=== PATIENT | male | born 1980 | race Caucasian/White ===

== ENCOUNTER 2016-08-23 09:32 | Inpatient (IN) | payer MEDICAID ==
[~2016-08-23] VITALS: Ht 177.8 cm; Wt 94.8 kg
[2016-08-23 09:33] VITALS: BP_SYST 112
[2016-08-23] MEDS ORDERED: NACL 0.9% 1,000 ML IV ONE (09:45)
[2016-08-23] MEDS ORDERED: MORPHINE 4 MG/ML INJ. SYRINGE IM ONE (09:45)
[2016-08-23] MEDS ORDERED: ONDANSETRON HCL 4 MG/2 ML VIAL IVP ONE (09:45)
[2016-08-23 10:19] LABS: BASOPHILS # (AUTO) 0.2 K/uL (0.0-0.2); BASOPHILS % (AUTO) 1.1 % (0.0-2.0); EOSINOPHILS # (AUTO) 0.1 K/uL (0.0-0.4); EOSINOPHILS % (AUTO) 0.6 % (0.0-4.0); HEMATOCRIT 29.8 % (36-54); HEMOGLOBIN 9.5 g/dL (14.0-18.0); LYMPHOCYTES # (AUTO) 4.1 K/uL (1.0-5.5); LYMPHOCYTES % (AUTO) 25.7 % (20.5-51.5); MEAN CORPUSCULAR HEMOGLOBIN 25 pg (27-31); MEAN CORPUSCULAR HGB CONC 32 % (32-36); MEAN CORPUSCULAR VOLUME 79 fL (79.0-98.0); MONOCYTES # (AUTO) 0.7 K/uL (0.0-1.0); MONOCYTES % (AUTO) 4.7 % (1.7-9.3); NEUTROPHILS # (AUTO) 10.8 K/uL (1.8-7.7); NEUTROPHILS % (AUTO) 67.9 % (40.0-70.0); PLATELET COUNT (AUTO) 228 K/uL (130-430); RED BLOOD CELL COUNT(AUTO) 3.78 MIL/uL (4.2-6.2); RED CELL DISTRIBUTION WIDTH 15.3 % (9.0-15.0); WHITE BLOOD COUNT (AUTO) 15.9 K/uL (4.8-10.8)
[2016-08-23 10:29] LABS: CALCIUM 8.1 mg/dL (8.4-11.0); CREATININE 1.65 mg/dL (0.55-1.30); POTASSIUM 4.3 mmol/L (3.5-5.1)
[2016-08-23 10:36] LABS: ALBUMIN 2.7 g/dL (3.4-4.8); TOTAL BILIRUBIN 0.2 mg/dL (0.0-1.0); TOTAL PROTEIN, SERUM 5.3 g/dL (6.4-8.3)
[2016-08-23] MEDS ORDERED: IOHEXOL 0 ML IV ONE (10:36)
[2016-08-23] MEDS ORDERED: NACL 0.9% 1,000 ML IV SCH (12:20)
[2016-08-23 12:26] LABS: BILIRUBIN,URINE NEGATIVE (NEGATIVE); BLOOD, URINE NEGATIVE (NEGATIVE); CLARITY/URINE CLEAR (CLEAR); COLOR,URINE YELLOW (YELLOW); GLUCOSE,URINE NEGATIVE (NEGATIVE); KETONES,URINE NEGATIVE (NEGATIVE); LEUKOCYTE ESTERASE ,URINE NEGATIVE (NEGATIVE); NITRITE, URINE NEGATIVE (NEGATIVE); PROTEIN URINE TRACE (NEGATIVE); UROBILINOGEN,URINE 0.2 (0.2-1.0)
[2016-08-23] MEDS ORDERED: PIPERACILLIN/TAZO 3.38 GM in D5W 50 ML IV ONE (12:30)
[2016-08-23] MEDS ORDERED: VANCOMYCIN HCL 1,000 MG in D5W 250 ML IV ONE (12:30)
[2016-08-23] MEDS ORDERED: VANCOMYCIN HCL 1000 MG/VIAL IV ONE (12:37)
[2016-08-23 12:41] LABS: BARBITURATE, URINE NEGATIVE (NEG <=200); BENZODIAZEPINE, URINE NEGATIVE (NEG <=150); CANNABINOID, URINE NEGATIVE (NEG <=50); COCAINE, URINE NEGATIVE (NEG <=150); METHAMPHETAMINES SCREEN,URINE POSITIVE (NEG <=500); URINE AMPHETAMINE POSITIVE (NEG <=500); URINE METHADONE NEGATIVE (NEG <=200)
[2016-08-23 12:42] LABS: OPIATE, URINE NEGATIVE (NEG <=100); PHENCYCLIDINE SCREEN,URINE NEGATIVE (NEG <=25); UR TRICYCLIC ANTIDEPRESSANTS NEGATIVE (NEG <=300); URINE OXYCODONE SCREEN NEGATIVE (NEG <=100); URINE PROPOXYPHENE SCREEN NEGATIVE (NEG <=300)
[2016-08-23 13:02] VITALS: BP_SYST 112
[2016-08-23 13:30] VITALS: BP_SYST 112
[2016-08-23] MEDS ORDERED: PANTOPRAZOLE SODIUM 40 MG/VIAL (PROTONIX) IVP ONE (13:30)
[2016-08-23] MEDS: D5NS 1,000 ML IV SCH ×2 (14:03→22:42)
[2016-08-23 14:12] LABS: ACETAMINOPHEN 3 ug/mL (1-30); ALCOHOL, BLOOD < 3 mg/dL (<10); SALICYLATE 2 mg/dL (3-30)
[2016-08-23] MEDS ORDERED: PIPERACILLIN/TAZO 3.375 GM in D5W 50 ML IV ONE (14:45)
[2016-08-23] MEDS ORDERED: ACETAMINOPHEN 325 MG TABLET PO PRN (16:00)
[2016-08-23] MEDS ORDERED: MAGNESIUM SULFATE 50 ML IV PRN (16:00)
[2016-08-23] MEDS ORDERED: LORazepam 2 MG/ML VIAL IVP PRN (16:00)
[2016-08-23] MEDS ORDERED: POTASSIUM CHLORIDE 10 MEQ TAB.PRT.SR PO PRN (16:00)
[2016-08-23] MEDS ORDERED: ONDANSETRON HCL 4 MG/2 ML VIAL IVP PRN (16:00)
[2016-08-23] MEDS ORDERED: MORPHINE 2 MG/ML INJ. SYRINGE IVP PRN (16:00)
[2016-08-23] MEDS ORDERED: DOCUSATE SODIUM 100 MG CAPSULE PO PRN (16:00)
[2016-08-23 19:49] VITALS: BP_SYST 133
[2016-08-23] MEDS ORDERED: ZOLPIDEM TARTRATE 5 MG TABLET PO PRN (21:00)
[2016-08-23 23:47] VITALS: BP_SYST 137
[2016-08-24 04:32] VITALS: BP_SYST 127
[2016-08-24] MEDS: D5NS 1,000 ML IV SCH ×2 (05:12→17:47)
[2016-08-24 07:29] LABS: BASOPHILS % (AUTO) 0.2 % (0.0-2.0); EOSINOPHILS # (AUTO) 0.2 K/uL (0.0-0.4); EOSINOPHILS % (AUTO) 1.7 % (0.0-4.0); HEMATOCRIT 23.3 % (36-54); HEMOGLOBIN 7.6 g/dL (14.0-18.0); LYMPHOCYTES # (AUTO) 2.8 K/uL (1.0-5.5); LYMPHOCYTES % (AUTO) 24.4 % (20.5-51.5); MEAN CORPUSCULAR HEMOGLOBIN 26 pg (27-31); MEAN CORPUSCULAR HGB CONC 33 % (32-36); MEAN CORPUSCULAR VOLUME 78 fL (79.0-98.0); MONOCYTES # (AUTO) 0.7 K/uL (0.0-1.0); MONOCYTES % (AUTO) 6.5 % (1.7-9.3); NEUTROPHILS # (AUTO) 7.8 K/uL (1.8-7.7); NEUTROPHILS % (AUTO) 67.2 % (40.0-70.0); PLATELET COUNT (AUTO) 180 K/uL (130-430); RED BLOOD CELL COUNT(AUTO) 2.97 MIL/uL (4.2-6.2); RED CELL DISTRIBUTION WIDTH 15.6 % (9.0-15.0); WHITE BLOOD COUNT (AUTO) 11.5 K/uL (4.8-10.8)
[2016-08-24 08:07] LABS: IRON (SERUM) 33 mcg/dL (59-158); TOTAL IRON BIND. CAPACITY 290 ug/dL (250-450)
[2016-08-24 08:13] LABS: CALCIUM 7.6 mg/dL (8.4-11.0); CREATININE 0.98 mg/dL (0.55-1.30); POTASSIUM 3.7 mmol/L (3.5-5.1)
[2016-08-24 08:43] VITALS: BP_SYST 139
[2016-08-24] MEDS: PANTOPRAZOLE SODIUM 40 MG/VIAL (PROTONIX) IVP SCH (08:52)
[2016-08-24 12:00] VITALS: BP_SYST 143
[2016-08-24] MEDS: MIDAZOLAM HCL 5 MG/5 ML VIAL ONE ×2 (12:33→12:37)
[2016-08-24] MEDS: fentaNYL CITRATE/PF 100 MCG/2 ML AMP ONE ×2 (12:33→12:35)
[2016-08-24 15:28] VITALS: BP_SYST 149
[2016-08-24] MEDS ORDERED: LORazepam 2 MG/ML VIAL IM ONE (16:30)
[2016-08-24] MEDS ORDERED: BISACODYL 5 MG TABLET.DR (DULCOLAX) PO ONE (17:00)
[2016-08-24] MEDS ORDERED: GOLYTELY / COLYTE SOLUTION 4 LITERS PO ONE (18:00)
[2016-08-24 20:00] VITALS: BP_SYST 144
[2016-08-24] MEDS ORDERED: LISINOPRIL 10 MG TABLET (PRINIVIL) PO ONE (22:45)
[2016-08-24] MEDS ORDERED: ATORVASTATIN 20 MG TABLET PO ONE (23:00)
[2016-08-24] MEDS ORDERED: PIPERACILLIN/TAZOBACTAM 3.375 GM/VIAL (ZOSYN) IV ONE (23:01)
[2016-08-24] MEDS: PIPERACILLIN/TAZO 3.375/DEX-IS 50 ML IV SCH (23:30)
[2016-08-25] MEDS ORDERED: PIPERACILLIN/TAZOBACTAM 3.375 GM/VIAL (ZOSYN) IV ONE (00:13)
[2016-08-25 00:18] VITALS: BP_SYST 142
[2016-08-25 04:05] VITALS: BP_SYST 141
[2016-08-25] MEDS: PIPERACILLIN/TAZO 3.375/DEX-IS 50 ML IV SCH ×2 (05:38→11:50)
[2016-08-25 07:08] LABS: BASOPHILS % (AUTO) 0.3 % (0.0-2.0); EOSINOPHILS # (AUTO) 0.1 K/uL (0.0-0.4); EOSINOPHILS % (AUTO) 1.2 % (0.0-4.0); HEMATOCRIT 24.9 % (36-54); HEMOGLOBIN 7.5 g/dL (14.0-18.0); LYMPHOCYTES # (AUTO) 1.6 K/uL (1.0-5.5); LYMPHOCYTES % (AUTO) 15.3 % (20.5-51.5); MEAN CORPUSCULAR HEMOGLOBIN 24 pg (27-31); MEAN CORPUSCULAR HGB CONC 30 % (32-36); MEAN CORPUSCULAR VOLUME 79 fL (79.0-98.0); MONOCYTES # (AUTO) 0.6 K/uL (0.0-1.0); NEUTROPHILS # (AUTO) 8.3 K/uL (1.8-7.7); NEUTROPHILS % (AUTO) 77.2 % (40.0-70.0); PLATELET COUNT (AUTO) 211 K/uL (130-430); RED BLOOD CELL COUNT(AUTO) 3.15 MIL/uL (4.2-6.2); RED CELL DISTRIBUTION WIDTH 15.3 % (9.0-15.0); WHITE BLOOD COUNT (AUTO) 10.6 K/uL (4.8-10.8)
[2016-08-25] MEDS ORDERED: MIDAZOLAM HCL 5 MG/5 ML VIAL ONE ×2 (07:22→07:23)
[2016-08-25] MEDS ORDERED: SIMETHICONE 40 MG/0.6 ML ML ONE (07:23)
[2016-08-25] MEDS ORDERED: fentaNYL CITRATE/PF 100 MCG/2 ML AMP ONE (07:23)
[2016-08-25 07:25] VITALS: BP_SYST 134
[2016-08-25 07:26] LABS: PROTHROMBIN TIME 10.8 SECS (9.5-12.5)
[2016-08-25 07:43] LABS: CALCIUM 8.4 mg/dL (8.4-11.0); CREATININE 0.89 mg/dL (0.55-1.30); FREE T4 (FREE THYROXINE) 0.6 ng/dL (0.6-1.6); PHOSPHORUS 2.9 mg/dL (2.7-4.5); POTASSIUM 3.6 mmol/L (3.5-5.1); THYROID STIMULATING HORMONE 0.93 uIu/mL (0.34-4.82)
[2016-08-25] MEDS: MIDAZOLAM HCL 5 MG/5 ML VIAL ONE ×3 (08:24→08:28)
[2016-08-25] MEDS: fentaNYL CITRATE/PF 100 MCG/2 ML AMP ONE ×2 (08:24→08:28)
[2016-08-25] MEDS ORDERED: LISINOPRIL 10 MG TABLET (PRINIVIL) PO SCH (09:00)
[2016-08-25] MEDS ORDERED: ATORVASTATIN 20 MG TABLET PO SCH (09:00)
[2016-08-25] MEDS: PANTOPRAZOLE SODIUM 40 MG/VIAL (PROTONIX) IVP SCH (10:19)
[2016-08-25] MEDS ORDERED: D5NS 1,000 ML IV SCH (11:00)
[2016-08-25] MEDS ORDERED: NACL 0.9% 1,000 ML IV SCH (11:00)
[2016-08-25 11:40] VITALS: BP_SYST 143
[2016-08-25 16:25] VITALS: BP_SYST 142
[2016-08-25] MEDS ORDERED: GOLYTELY / COLYTE SOLUTION 4 LITERS PO ONE (18:00)
[2016-08-26 10:07] LABS: T4 (THYROXINE) 6.2 ug/dL (4.5-12.0)
[2016-08-27 05:18] LABS: FOLATE (FOLIC ACID) 12.7 ng/mL (>3.0)
[2016-08-27 11:01] LABS: HEMOGLOBIN A1C 5.9 % (4.8-5.6)
== END 2016-08-25 16:50 | disposition left against medical advice (07) | DRG 241 ==
LOC: SED 09:32 → SMU 12:04
PROVIDERS: ADMIT General Practice; ATTEND General Practice
PROC: 0DB68ZX Excision of Stomach, Via Natural or Artificial Opening Endoscopic, Diagnostic (ICD-10-PCS; principal; 2016-08-24 12:30)
DX: K29.81 Duodenitis with bleeding (principal); N17.0 Acute kidney failure with tubular necrosis; E43 Unspecified severe protein-calorie malnutrition; S02.81XA Fracture of other specified skull and facial bones, right side, initial encounter for closed fracture; G90.9 Disorder of the autonomic nervous system, unspecified; N20.0 Calculus of kidney; D64.9 Anemia, unspecified; Z53.21 Procedure and treatment not carried out due to patient leaving prior to being seen by health care provider; E66.9 Obesity, unspecified; K57.90 Diverticulosis of intestine, part unspecified, without perforation or abscess without bleeding; F15.10 Other stimulant abuse, uncomplicated; F17.210 Nicotine dependence, cigarettes, uncomplicated; R29.6 Repeated falls; Z68.30 Body mass index [BMI] 30.0-30.9, adult
CPT/HCPCS: 36415; 43239; 45380; 70450-TC; 71010; 80048; 80053; 80061; 80307; 81003; 82607; 82728; 82746; 83036; 83540-TC; 83550-TC; 83605; 83690-TC; 83735-TC; 84100-TC; 84436; 84439; 84443-TC; 84479; 84484; 85025; 85044-TC; 85610-TC; 85730-TC; 87040-TC; 88305; 88312; 88313; 93005; 93880; 96361; 96374; 99285; C9113; G0480; G0481; G0482; J2060; J2250; J2270; J2405; J2543; J3010; J3370; J7042; J7060; Q9967